=== PATIENT | female | born 1990 | race Caucasian/White ===

== ENCOUNTER 2024-02-12 12:49 | Emergency (ER) | payer BC ==
[2024-02-12 12:58] VITALS: BP 109/74; PULSE 82; RESP 18; TEMP 97.9; BMI 33.3
[2024-02-12] MEDS ORDERED: ACETAMINOPHEN 500 MG TABLET (FP) ONE (13:57)
[2024-02-12] MEDS ORDERED: KETOROLAC TROMETHAMINE 30 MG/1 ML VIAL ONE (13:57)
[2024-02-12] MEDS: ACETAMINOPHEN 325 MG TABLET (FP) PO ONE (14:16)
[2024-02-12 14:23] LABS: BASO % 1.3 % (0-2.0); HEMATOCRIT 39.5 % (32.4-45.2); HEMOGLOBIN 13.2 GM/dL (10.7-15.3); LYMPH % 30.1 % (8-40); MCH 26.3 pg (25.7-33.7); MCHC 33.4 g/dl (32.0-36.0); MEAN CELL VOLUME 78.5 fl (80-96); MEAN PLT VOLUME 8.9 fl (7.5-11.1); MONO % 10.1 % (3.8-10.2); NEUT % 56.5 % (42.8-82.8); PLATELET COUNT 278 10^3/uL (134-434); RBC 5.03 M/mm3 (3.60-5.2); RDW 14.3 % (11.6-15.6); WHITE BLOOD COUNT 6.7 K/mm3 (4.0-10.0)
[2024-02-12] MEDS: KETOROLAC TROMETHAMINE 60 MG/2 ML VIAL IM ONE (14:25)
[2024-02-12] MEDS: SODIUM CHLORIDE 1,000 ML IV STA (14:25)
[2024-02-12 14:30] LABS: INR 1.07 (0.83-1.09); PROTHROMBIN TIME (PATIENT) 12.1 SEC (9.7-13.0)
[2024-02-12 14:33] LABS: ACTIVATED PTT 32.5 SECONDS (25.2-36.5)
[2024-02-12 14:44] LABS: CHLORIDE 105 mmol/L (98-107); POTASSIUM 4.1 mmol/L (3.5-5.1); SODIUM 138 mmol/L (136-145)
[2024-02-12 14:46] LABS: CALCIUM 9.5 mg/dL (8.5-10.1)
[2024-02-12 14:47] LABS: ALBUMIN 4.2 g/dl (3.4-5.0); ANION GAP 7 mmol/L (4-13); CO2 26 mmol/L (21-32); GLUCOSE,RANDOM 87 mg/dL (74-106)
[2024-02-12 14:50] LABS: CREATININE 0.7 mg/dL (0.55-1.3); SGOT/AST 24 U/L (15-37); SGPT/ALT 40 U/L (13-61)
[2024-02-12 14:51] LABS: BILIRUBIN,TOTAL 1.7 mg/dL (0.2-1); TOT PROT 7.8 g/dl (6.4-8.2)
[2024-02-12 14:53] LABS: ALK PHOS 57 U/L (45-117)
[2024-02-12 16:28] LABS: BILIRUBIN,DIRECT 0.3 mg/dL (0.0-0.2)
== END 2024-02-12 16:42 | disposition home or self-care (01) ==
LOC: JER 12:49
PROC: 3E0337Z Introduction of Electrolytic and Water Balance Substance into Peripheral Vein, Percutaneous Approach (ICD-10-PCS; principal; 2024-02-12)
DX: R07.9 Chest pain, unspecified (principal)
CPT/HCPCS: 36415; 71046-TC-FY; 76705-TC; 80053; 82248; 82550; 83735; 84439; 84443; 84484; 84703; 85025; 85610; 85730; 93005; 93010; 99285-25

== ENCOUNTER 2024-06-06 16:45 | Emergency (ER) | payer BC ==
[2024-06-06 17:20] VITALS: BP 127/81; PULSE 87; RESP 16; TEMP 98.5; BMI 33.3
[2024-06-06] MEDS: IBUPROFEN 400 MG TABLET (FP) PO ONE (19:00)
[2024-06-06] MEDS ORDERED: ACETAMINOPHEN 500 MG TABLET (FP) ONE (19:53)
[2024-06-06] MEDS: ACETAMINOPHEN 500 MG TABLET (FP) PO ONE (20:00)
== END 2024-06-06 20:40 | disposition home or self-care (01) ==
LOC: JER 16:45
DX: M54.50 Low back pain, unspecified (principal); M25.551 Pain in right hip; M25.511 Pain in right shoulder; M25.571 Pain in right ankle and joints of right foot; M79.661 Pain in right lower leg; W10.8XXA Fall (on) (from) other stairs and steps, initial encounter
CPT/HCPCS: 73610-TC-RT-FY; 84703; 93005; 93010; 99285-25